=== PATIENT | female | born 1995 | race Caucasian/White ===

== ENCOUNTER 2017-11-23 02:42 | Emergency (ER) | payer BC, OTHER ==
[~2017-11-23] VITALS: Ht 165.1 cm; Wt 61.5 kg
--- NOTE | 2017-11-23 02:57 | EMERGENCY ROOM VISIT NOTE ---
History Report prepared by Yennifer: Kofi Najera Under the Supervision of: Dr. Catrachita Monet D.O. First contact with patient: 02:52 Stated Complaint: ALCOHOL History of Present Illness HPI is limited due to altered mental status secondary to alcohol intoxication. The patient is a 22 year old female who presents to the Emergency Room with complaints of a recent alcohol overdose. Nurse states that the patient was unresponsive/naked in the laundry room at [facility]. Nurse states that patient took off her clothes and urinated on the floor of the laundry mat. Patient denies any health problems or daily medications. Source of History: patient, nursing staff History Limited By: AMS Review of Systems ROS is limited due to altered mental status secondary to alcohol intoxication. Past Medical & Surgical History limited due to altered mental status secondary to alcohol intoxication. Family History History limited due to altered mental status secondary to alcohol intoxication. Social History Occupation Status: [employer] student Current/Historical Medications No Active Prescriptions or Reported Meds Allergies Coded Allergies: No Known Allergies (Unverified , 11/23/17) Physical Exam Vital Signs Date Time Temp Pulse Resp B/P (MAP) Pulse Ox O2 Delivery O2 Flow Rate FiO2 11/23/17 05:30 62 18 116/51 96 11/23/17 05:00 77 21 100/68 94 11/23/17 04:30 74 19 125/66 96 11/23/17 04:00 60 16 109/71 97 Room Air 11/23/17 03:03 59 11/23/17 02:59 36.4 68 18 128/78 99 Room Air Physical Exam General: Pleasant, smells of alcohol HEENT: Head - normocephalic and atraumatic Pupils are 5mm, equal, round, and sluggishly reactive to light. Extraocular eye muscles are intact, and sclera are anicteric. Nose - moist nasal mucosa without discharge. Mouth - moist buccal mucosa. Oropharynx is nonerythematous and there is no tonsillar exudate or edema noted. Neck: Supple; no JVD, nuchal rigidity, cervical lymphadenopathy. Heart: Regular rate and rhythm. There is a normal S1 and S2 with no murmurs, clicks, or gallops appreciated. Lungs: Clear to auscultation bilaterally with no wheezes, rales, or rhonchi. Abdomen: Soft, completely nontender, nondistended, with good bowel sounds. There are no palpable pulsatile masses or hepatosplenomegaly. There is no guarding, rigidity, or rebound noted. Extremities: No evidence of cyanosis, clubbing, or edema. There are easily palpable peripheral pulses. Skin: warm and dry with good turgor and no rashes. Medical Decision & Procedures Laboratory Results 11/23/17 02:49 Test 11/23/17 02:49 Anion Gap 5.0 mmol/L (3-11) Est Creatinine Clear Calc Drug Dose 92.0 ml/min Estimated GFR () 110.4 Estimated GFR (Non- 95.2 BUN/Creatinine Ratio 11.8 (10-20) Calcium Level 8.9 mg/dl (8.5-10.1) Ethyl Alcohol mg/dL 301.0 mg/dl (0-3) Laboratory results per my review. ED Course 0254: The patient was evaluated in room A9. A complete history and physical examination were performed. Nursing notes and previous electronic medical records were reviewed. 0407: Patient is wide awake. I reviewed with the patient her high alcohol level and encouraged her to sleep. 0538: Patient is asleep and her vitals are stable. 0730: Patient was signed out to Dr. Faye at the change of shifts. Medical Decision The patient is a 22 year old female who presents to the ED with a recent alcohol overdose. Differential diagnosis includes alcohol overdose, drug intoxication, hypoglycemia, and head injury. Lab results show alcohol = 301, glucose = 120, and normal renal function. This is a 22-year-old female patient who presents to the emergency department after consuming too much alcohol. She was found in her apartment laundry room having urinated herself and removed her clothing. She has no other significant recollection of the evening. She denies any complaints of pain or trauma. The patient was allowed to sober up in the emergency department. Her vitals remained stable. The case was signed out to Dr. Faye. He will discuss the situation with the patient once she is more sober. Medication Reconcilliation Current Medication List: was personally reviewed by me Blood Pressure Screening Patient's blood pressure: Normal blood pressure Blood pressure disposition: Did not require urgent referral Impression Primary Impression: Alcohol overdose Scribe Attestation The scribe's documentation has been prepared under my direction and personally reviewed by me in its entirety. I confirm that the note above accurately reflects all work, treatment, procedures, and medical decision making performed by me. Departure Information Dispostion Still a Patient Prescriptions No Active Prescriptions or Reported Meds Forms HOME CARE DOCUMENTATION FORM, IMPORTANT VISIT INFORMATION Patient Instructions ED Overdose Alcohol, [facility]: [employer] Students and Alcohol Related Visits, My [facility] Additional Instructions Rest. Take plenty of clear liquids Avoid such excessive alcohol use in the future. Take tylenol or motrin for headache Problem Qualifiers Primary Impression: Alcohol overdose Encounter type: initial encounter Injury intent: accidental or unintentional Qualified Codes: T51.91XA - Toxic effect of unspecified alcohol , accidental (unintentional), initial encounter
[2017-11-23 02:59] VITALS: TEMP 36.4; Ht 165.1 cm; Wt 61.5 kg
[2017-11-23 03:21] LABS: CALCIUM 8.9 mg/dl (8.5-10.1); CREATININE 0.87 mg/dl (0.60-1.20)
--- NOTE | 2017-11-23 09:02 | EMERGENCY ROOM VISIT NOTE ---
ED Visit Note First contact with patient: 07:01 Pt signed out to me at change of shift. Patient is clinically sober at this point. I gave my customary talk on the dangers of alcohol abuse along with fact that this patient was found naked in a public place. I strongly recommended that the patient discuss this visit with her parents. Current/Historical Medications No Active Prescriptions or Reported Meds Allergies Coded Allergies: No Known Allergies (Unverified , 11/23/17) Vital Signs Date Time Temp Pulse Resp B/P (MAP) Pulse Ox O2 Delivery O2 Flow Rate FiO2 11/23/17 09:15 77 20 122/79 100 11/23/17 07:16 62 18 134/76 99 Room Air 11/23/17 05:30 62 18 116/51 96 11/23/17 05:00 77 21 100/68 94 11/23/17 04:30 74 19 125/66 96 11/23/17 04:00 60 16 109/71 97 Room Air 11/23/17 03:03 59 11/23/17 02:59 36.4 68 18 128/78 99 Room Air Laboratory Results 11/23/17 02:49 Test 11/23/17 02:49 Anion Gap 5.0 mmol/L (3-11) Est Creatinine Clear Calc Drug Dose 92.0 ml/min Estimated GFR () 110.4 Estimated GFR (Non- 95.2 BUN/Creatinine Ratio 11.8 (10-20) Calcium Level 8.9 mg/dl (8.5-10.1) Ethyl Alcohol mg/dL 301.0 mg/dl (0-3) Departure Information Impression Primary Impression: Alcohol overdose Dispostion Home / Self-Care Condition FAIR Prescriptions No Active Prescriptions or Reported Meds Referrals [facility] (PCP) Forms HOME CARE DOCUMENTATION FORM, IMPORTANT VISIT INFORMATION Patient Instructions My [facility], [facility]: [employer] Students and Alcohol Related Visits, ED Overdose Alcohol Additional Instructions ABHIJEET = .300 @ 3 AM Rest. Take plenty of clear liquids Avoid such excessive alcohol use in the future. Take tylenol or motrin for headache Problem Qualifiers Primary Impression: Alcohol overdose Encounter type: initial encounter
[2017-11-23 09:15] VITALS: BP 122/79; PULSE 77; O2SAT 100
== END 2017-11-23 09:18 | disposition home or self-care (01) ==
LOC: EDBD 02:42 → C.EDA 02:44
DX: F10.929 Alcohol use, unspecified with intoxication, unspecified (principal); Y90.8 Blood alcohol level of 240 mg/100 ml or more

== ENCOUNTER → 2018-01-21 | Outpatient (CLI) | payer BC ==
--- NOTE | 2018-01-21 08:20 | DIAGNOSTIC IMAGING REPORT ---
MRI LUMBAR SPINE W/O CONTRAST CLINICAL HISTORY: Low back pain with right leg radiculopathy. TECHNIQUE: Sagittal and axial T1, T2 and STIR images were obtained. COMPARISON STUDY: No previous studies for comparison. OBSERVATIONS: The vertebral bodies and posterior elements appear intact. There is no abnormal bony signal present to suggest a marrow replacement process. L1-2: No disc protrusions or extrusions. No evidence of spinal canal or neural foraminal compromise. L2-3: No disc protrusions or extrusions. No evidence of spinal canal or neural foraminal compromise. L3-4: No disc protrusions or extrusions. No evidence of spinal canal or neural foraminal compromise. L4-5: No disc protrusions or extrusions. No evidence of spinal canal or neural foraminal compromise. L5-S1: No disc protrusions or extrusions. No evidence of spinal canal or neural foraminal compromise. The conus medullaris and cauda equina appear normal. IMPRESSION: Normal study. Electronically signed by: Deric Montgomery M.D. 01/21/2018 8:19 AM Dictated Date/Time: 01/21/2018 8:16 AM
== END | disposition home or self-care (01) ==
LOC: C.MRI 07:43
PROVIDERS: ATTEND Family Medicine
DX: M54.16 Radiculopathy, lumbar region (principal)

== ENCOUNTER → 2018-02-25 | Day surgery (SDC) | payer BC ==
[2018-02-10 16:23] VITALS: Ht 167.6 cm; Wt 66.8 kg
[~2018-02-25] VITALS: Ht 167.6 cm; Wt 66.8 kg
[~2018-02-25] MED LIST: BUPIVACAINE 0.25% 2.5MG/ML PF 10 ML VIAL ONE; IBUP-1050 PO; IOPAMIDOL INJ 61% 15 ML VIAL ONE; LIDOCAINE HCL 1% MPF 5 ML VIAL ONE; METHYLPREDNISOLONE ACETATE 80 MG/ML VIAL ONE
--- NOTE | 2018-02-25 14:29 | History & Physical Bridge - SC ---
H&P Re-Evaluation Bridge Note: I have examined the patient, reviewed the History & Physical and in the interval since the performance of the History & Physical I have noted the following changes of clinical significance: No changes noted
--- NOTE | 2018-02-25 14:49 | [facility] Post Operative Brief Note ---
Immediate Operative Summary Operative Date Feb 25, 2018. Pre-Operative Diagnosis Left facet arthropathy with pain Post-Operative Diagnosis Same Procedure(s) Performed Right L5-S1 Facet Joint Injection Surgeon Dr. Vanessa Bertrand [employer] Clerk Surgeon(s) None Estimated Blood Loss 0 Findings Consistent with Post-Op Diagnosis Specimens NA Drains None Anesthesia Type Local Complication(s) none Disposition Disposition:
[2018-02-25 14:51] VITALS: TEMP 36.9
--- NOTE | 2018-02-25 14:51 | Discharge Instructions ---
Discharge Instructions Date of Service Feb 25, 2018. Visit Reason for Visit: Low Back Pain, Right Lumbar Radiculopathy Discharge Discharge Diagnosis / Problem: low back pain Discharge Goals Goal(s): Decrease discomfort, Improve function Activity Recommendations Activity Limitations: resume your previous activity Anesthesia . Post Anesthesia Instructions: If you have had General Anesthesia or IV Sedation: * Do not drive today. * Resume driving when surgeon permits. * Do not make important decisions or sign legal documents today. * Call surgeon for: 1. Temperature elevations greater than 101 degrees F. 2. Uncontrollable pain. 3. Excessive bleeding. 4. Persistent nausea and vomiting. 5. Medication intolerance (nausea, vomiting or rash). * For nausea and vomiting use only clear liquids such as: tea, soda, bouillon until nausea subsides, then gradually increase diet as tolerated. * If you have any concerns or questions, call your surgeon's office. If physician is unavailable and it is an emergency, call 911 or go to the nearest emergency room. . Diet Recommendations Recommended Home Diet: resume previous diet Procedures Procedures Performed: Right L5-S1 Facet Joint Injection Pending Studies Studies pending at discharge: no Medical Emergencies . Who to Call and When: Medical Emergencies: If at any time you feel your situation is an emergency, please call 911 immediately. . Non-Emergent Contact Non-Emergency issues call your: Specialist . . "Provider Documentation" section prepared by Ephraim Bertrand. .
[2018-02-25 15:14] VITALS: BP 113/80; PULSE 60; O2SAT 97
--- NOTE | 2018-02-25 16:21 | OPERATIVE REPORT ---
DATE OF OPERATION: 02/25/2018 PREOPERATIVE DIAGNOSIS: Right L5-S1 facet joint injection. POSTOPERATIVE DIAGNOSIS: Right L5-S1 facet joint injection. PROCEDURE: Right L5-S1 facet joint injection under fluoroscopic guidance. INDICATIONS: Patient is a 22-year-old white female who has pain in the lower right region. It is consistent with facet type problem. Radiographs show increased facet joint signal at 5-1 on the right with a small cyst at 5-1 facet on the left. She presents today for a right L5-S1 facet joint injection to provide her with relief of her deep back pain. PHYSICAL EXAMINATION: Pleasant female seated comfortably. She has point tenderness to palpation on the right L5-S1 facet areas. She had uncomfortable pain moving from a forward position to an extended neutral position. Sciatic notches were nontender. Negative seated straight leg raises, negative Pamela maneuver, negative sacral distraction and compression maneuvers. CONSENT: Verbal and written consent was obtained from the patient. Risks and benefits were reviewed. Risks include but are not limited to abscess and allergic reaction. Patient wishes to proceed. DESCRIPTION OF PROCEDURE: Patient was taken back to the special procedures room of the [facility]. She was maintained in a prone position. Backside was cleansed with Betadine x3 and a dry sterile dressing was applied. Fluoroscope was used to identify the L5-S1 facet joint. Overlying skin was anesthetized with 4 mL of lidocaine 1% with a 25 gauge 1.5-inch needle. A 3-1/2 inch 25-gauge spinal needle was then directed under fluoroscopic guidance into the facet joint. It was injected with Isovue-300, 0.25 mL. She then underwent injection after negative aspiration of 40 mg of Depo-Medrol and 0.5 mL of bupivacaine 0.25% for a total volume of 1 mL. Injection was well tolerated. DISPOSITION: 1. Patient is taken out in the discharge recovery room, she will be discharged home once discharge criteria have been met. 2. Follow up in the [facility] office in 4 weeks' time. I attest to the content of the Intraoperative Record and any orders documented therein. Any exception s are noted below.
== END | disposition home or self-care (01) ==
LOC: X.SURG 13:59
PROVIDERS: ATTEND Physical Medicine & Rehabilitation
DX: M12.88 Other specific arthropathies, not elsewhere classified, other specified site (principal)